=== PATIENT | female | born 1965 | race African-American/Black ===

== ENCOUNTER 2023-10-01 07:32 | Emergency (ER) | payer OTHER ==
[2023-10-01 07:43] VITALS: BP 151/85; PULSE 77; RESP 17; TEMP 97.8; BMI 25.1
[2023-10-01] MEDS ORDERED: PHENAZOPYRIDINE HCL 100 MG TABLET (FP) PO ONE (08:00)
[2023-10-01] MEDS ORDERED: PHENAZOPYRIDINE HCL 100 MG TABLET (FP) ONE (08:06)
[2023-10-01 08:30] LABS: EPI CELLS 5 /uL (0-25.1); HYALINE CASTS 0 /uL (0-3.1); PH,URINE 7.5 (5.0-8.0); URINE APPEARANCE CLEAR; URINE BACTERIA 155 /uL (0-1359); URINE BILIRUBIN NEGATIVE (NEGATIVE); URINE COLOR ORANGE; URINE GLUCOSE (UA) TRACE (NEGATIVE); URINE KETONE TRACE (NEGATIVE); URINE LEUK ESTERASE TRACE (NEGATIVE); URINE NITRITE NEGATIVE (NEGATIVE); URINE PROTEIN 4+ (NEGATIVE); URINE RBC 3010 /uL (0-23.9); URINE UROBILINOGEN 0.2 mg/dL (0.2-1.0); URINE WBC 166 /uL (0-25.8)
[2023-10-01] MEDS ORDERED: SULFAMETHOXAZOLE/TRIMETHOPRIM 800MG/160MG D.S. TABLET PO ONE (09:42)
[2023-10-01] MEDS ORDERED: SULFAMETHOXAZOLE/TRIMETHOPRIM 800MG/160MG D.S. TABLET ONE (09:51)
== END 2023-10-01 10:02 | disposition home or self-care (01) ==
LOC: JER 07:32
DX: R30.0 Dysuria (principal); R10.30 Lower abdominal pain, unspecified; R19.7 Diarrhea, unspecified; N30.01 Acute cystitis with hematuria
CPT/HCPCS: 74176-TC; 81003; 82962; 87086; 99284-25

== ENCOUNTER 2023-10-04 19:02 | Inpatient (IN) | payer OTHER ==
[2023-10-04] MEDS ORDERED: ACETAMINOPHEN 1000 MG/100 ML BAG IVPB ONE (21:18)
[2023-10-04] MEDS ORDERED: ONDANSETRON 4 MG/2 ML VIAL IVPUSH ONE (21:38)
[2023-10-04] MEDS ORDERED: SODIUM CHLORIDE 0.9% 500 ML INFUS.BAG IV ONE (21:38)
[2023-10-04] MEDS ORDERED: ONDANSETRON 4 MG/2 ML VIAL ONE (21:45)
[2023-10-04] MEDS ORDERED: ACETAMINOPHEN INJECTION 100 ML IVPB ONE (21:45)
[2023-10-04 21:47] LABS: BASO % 0.3 % (0-2.0); EOS % 0.3 % (0-4.5); HEMATOCRIT 34.5 % (32.4-45.2); HEMOGLOBIN 11.3 GM/dL (10.7-15.3); LYMPH % 4.9 % (8-40); MCH 24.4 pg (25.7-33.7); MCHC 32.8 g/dl (32.0-36.0); MEAN CELL VOLUME 74.4 fl (80-96); MEAN PLT VOLUME 8.2 fl (7.5-11.1); MONO % 9.3 % (3.8-10.2); NEUT % 85.2 % (42.8-82.8); PLATELET COUNT 304 10^3/uL (134-434); RBC 4.63 M/mm3 (3.60-5.2); RDW 15.1 % (11.6-15.6); WHITE BLOOD COUNT 10.3 K/mm3 (4.0-10.0)
[2023-10-04 21:52] LABS: EPI CELLS 8 /uL (0-25.1); HYALINE CASTS 1 /uL (0-3.1); PH,URINE 5.5 (5.0-8.0); URINE APPEARANCE CLEAR; URINE BACTERIA 323 /uL (0-1359); URINE BILIRUBIN 3+ (NEGATIVE); URINE COLOR DK YELLOW; URINE GLUCOSE (UA) NEGATIVE (NEGATIVE); URINE KETONE 1+ (NEGATIVE); URINE LEUK ESTERASE 2+ (NEGATIVE); URINE NITRITE NEGATIVE (NEGATIVE); URINE PROTEIN 1+ (NEGATIVE); URINE WBC 219 /uL (0-25.8)
[2023-10-04 21:55] LABS: INR 1.95 (0.83-1.09); PROTHROMBIN TIME (PATIENT) 22.5 SEC (9.7-13.0)
[2023-10-04 21:58] LABS: ACTIVATED PTT 33.4 SECONDS (25.2-36.5)
[2023-10-04 22:04] LABS: POTASSIUM 4.6 mmol/L (3.5-5.1)
[2023-10-04 22:06] LABS: ALBUMIN 3.5 g/dl (3.4-5.0)
[2023-10-04 22:07] LABS: BLOOD UREA NITROGEN 13.4 mg/dL (7-18)
[2023-10-04 22:11] LABS: BILIRUBIN,TOTAL 4.2 mg/dL (0.2-1); TOT PROT 7.7 g/dl (6.4-8.2)
[2023-10-04 22:13] LABS: URINE RBC 34.7 /uL (0-23.9)
[2023-10-04] MEDS ORDERED: CEFTRIAXONE 1 GM in DEXTROSE 5%-WATER - 100 ML IVPB ONE (23:54)
[2023-10-05] MEDS ORDERED: CEFTRIAXONE 1 GM/50 ML BAG ONE (00:29)
[2023-10-05] MEDS ORDERED: SODIUM CHLORIDE 0.9% 500 ML INFUS.BAG IV ONE (02:00)
[2023-10-05] MEDS ORDERED: KETOROLAC TROMETHAMINE 15 MG/ML VIAL IVPUSH PRN (04:29)
[2023-10-05] MEDS ORDERED: SODIUM CHLORIDE 1,000 ML IV SCH (04:30)
[2023-10-05] MEDS ORDERED: traMADol HCL 50 MG TABLET PO PRN (04:30)
[2023-10-05] MEDS ORDERED: ONDANSETRON 4 MG/2 ML VIAL IVPUSH PRN (06:54)
[2023-10-05 08:04] LABS: BASO % 0.2 % (0-2.0); EOS % 0.7 % (0-4.5); HEMATOCRIT 32.3 % (32.4-45.2); HEMOGLOBIN 10.6 GM/dL (10.7-15.3); LYMPH % 3.6 % (8-40); MCH 24.4 pg (25.7-33.7); MCHC 32.9 g/dl (32.0-36.0); MEAN CELL VOLUME 74.2 fl (80-96); MEAN PLT VOLUME 8.9 fl (7.5-11.1); MONO % 10.3 % (3.8-10.2); NEUT % 85.2 % (42.8-82.8); PLATELET COUNT 266 10^3/uL (134-434); RBC 4.36 M/mm3 (3.60-5.2); RDW 15.3 % (11.6-15.6); WHITE BLOOD COUNT 10.1 K/mm3 (4.0-10.0)
[2023-10-05 08:06] LABS: INR 2.2 (0.83-1.09); PROTHROMBIN TIME (PATIENT) 25.3 SEC (9.7-13.0)
[2023-10-05 08:42] LABS: POTASSIUM 4.5 mmol/L (3.5-5.1)
[2023-10-05 08:47] LABS: CALCIUM 8.5 mg/dL (8.5-10.1)
[2023-10-05 08:48] LABS: ALBUMIN 3.2 g/dl (3.4-5.0); BLOOD UREA NITROGEN 12.1 mg/dL (7-18)
[2023-10-05 08:53] LABS: BILIRUBIN,TOTAL 5.1 mg/dL (0.2-1); CREATININE 0.8 mg/dL (0.55-1.3); TOT PROT 7.3 g/dl (6.4-8.2)
[2023-10-05] MEDS ORDERED: SODIUM CHLORIDE 1,000 ML IV STA (09:07)
[2023-10-05] MEDS ORDERED: ENOXAPARIN NA (PORCINE) 40 MG/0.4 ML DISP.SYRIN SQ SCH (10:00)
[2023-10-05 11:14] LABS: HIV INTERPRETATION NEGATIVE (NEGATIVE)
[2023-10-05] MEDS ORDERED: PHYTONADIONE 10 MG/1 ML AMP IVPB ONE (12:15)
[2023-10-05 12:19] VITALS: BMI 24.3
[2023-10-05 13:00] LABS: BASO % 0.2 % (0-2.0); EOS % 0.4 % (0-4.5); LYMPH % 7.3 % (8-40); MCH 24.7 pg (25.7-33.7); MCHC 33.4 g/dl (32.0-36.0); MEAN CELL VOLUME 73.9 fl (80-96); MEAN PLT VOLUME 8.7 fl (7.5-11.1); MONO % 10.9 % (3.8-10.2); NEUT % 81.2 % (42.8-82.8); PLATELET COUNT 263 10^3/uL (134-434); RBC 4.06 M/mm3 (3.60-5.2); RDW 15.1 % (11.6-15.6); WHITE BLOOD COUNT 8.8 K/mm3 (4.0-10.0)
[2023-10-05] MEDS ORDERED: ACETYLCYSTEINE IVPB ONE (13:00)
[2023-10-05] MEDS ORDERED: WATER IVPB ONE (13:00)
[2023-10-05] MEDS ORDERED: DEXTROSE 5% IVPB ONE (13:00)
[2023-10-05 13:01] LABS: INR 2.19 (0.83-1.09); PROTHROMBIN TIME (PATIENT) 25.2 SEC (9.7-13.0)
[2023-10-05 13:35] LABS: POTASSIUM 4.4 mmol/L (3.5-5.1)
[2023-10-05 13:40] LABS: ALBUMIN 2.9 g/dl (3.4-5.0); BLOOD UREA NITROGEN 10.2 mg/dL (7-18); CALCIUM 7.8 mg/dL (8.5-10.1)
[2023-10-05 13:43] LABS: CREATININE 0.9 mg/dL (0.55-1.3)
[2023-10-05 13:45] LABS: BILIRUBIN,TOTAL 4.6 mg/dL (0.2-1); TOT PROT 6.7 g/dl (6.4-8.2)
[2023-10-05] MEDS ORDERED: ACETYLCYSTEINE INJECTION 20% 3,800 MG in DEXTROSE 5%-WATER - 500 ML IVPB ONE (14:00)
[2023-10-05] MEDS ORDERED: ACETYLCYSTEINE INJECTION 20% 7,500 MG in DEXTROSE 5%-WATER - 1,000 ML IVPB ONE (18:00)
[2023-10-06 09:35] LABS: PHENCYCLIDINE,URINE NEGATIVE (NEGATIVE)
[2023-10-06 09:36] LABS: METHADONE, UR NEGATIVE (NEGATIVE); OPIATES, URI NEGATIVE (NEGATIVE); URINE BENZODIAZEPINES NEGATIVE (NEGATIVE)
[2023-10-06 09:43] LABS: INR 1.52 (0.83-1.09); PROTHROMBIN TIME (PATIENT) 17.6 SEC (9.7-13.0)
[2023-10-06 09:50] LABS: COCAINE, UR NEGATIVE (NEGATIVE); URINE AMPHETAMINES NEGATIVE (NEGATIVE); URINE BARBITURATES NEGATIVE (NEGATIVE)
[2023-10-06 10:00] LABS: ALBUMIN 2.4 g/dl (3.4-5.0)
[2023-10-06 10:05] LABS: BILIRUBIN,TOTAL 3.8 mg/dL (0.2-1); TOT PROT 6.2 g/dl (6.4-8.2)
[2023-10-06] MEDS: SODIUM CHLORIDE 1,000 ML IV SCH (13:48)
[2023-10-06 15:58] LABS: POTASSIUM 4.2 mmol/L (3.5-5.1)
[2023-10-06 15:59] LABS: CALCIUM 8.6 mg/dL (8.5-10.1)
[2023-10-06 16:00] LABS: BLOOD UREA NITROGEN 7.1 mg/dL (7-18)
[2023-10-06 16:03] LABS: CREATININE 0.8 mg/dL (0.55-1.3)
[2023-10-07 11:08] LABS: BASO % 0.7 % (0-2.0); EOS % 0.9 % (0-4.5); LYMPH % 17.4 % (8-40); MCH 24.3 pg (25.7-33.7); MCHC 33.4 g/dl (32.0-36.0); MEAN CELL VOLUME 72.6 fl (80-96); MEAN PLT VOLUME 9.1 fl (7.5-11.1); MONO % 6.4 % (3.8-10.2); NEUT % 74.6 % (42.8-82.8); PLATELET COUNT 309 10^3/uL (134-434); RBC 4.14 M/mm3 (3.60-5.2); RDW 15.5 % (11.6-15.6); WHITE BLOOD COUNT 7.8 K/mm3 (4.0-10.0)
[2023-10-07 11:10] LABS: INR 1.23 (0.83-1.09); PROTHROMBIN TIME (PATIENT) 14.2 SEC (9.7-13.0)
[2023-10-07 11:18] LABS: POTASSIUM 3.9 mmol/L (3.5-5.1)
[2023-10-07 11:20] LABS: ALBUMIN 2.6 g/dl (3.4-5.0); CALCIUM 8.7 mg/dL (8.5-10.1)
[2023-10-07 11:21] LABS: MAGNESIUM 1.9 mg/dL (1.8-2.4)
[2023-10-07 11:24] LABS: CREATININE 0.7 mg/dL (0.55-1.3)
[2023-10-07 11:25] LABS: BILIRUBIN,TOTAL 3.5 mg/dL (0.2-1); TOT PROT 6.7 g/dl (6.4-8.2)
[2023-10-07 15:10] LABS: IG G QN IMMUNOGLOBULIN 1482 mg/dL (586-1602); IGG SUBCLASS 1 980 mg/dL (248-810); IGG SUBCLASS 2 417 mg/dL (130-555); IGG SUBCLASS 3 122 mg/dL (15-102)
[2023-10-07 20:07] LABS: ATYPICAL pANCA <1:20 titer (Neg:<1:20); C-ANCA <1:20 titer (Neg:<1:20)
[2023-10-08 06:56] VITALS: RESP 20
[2023-10-08 10:26] LABS: INR 1.22 (0.83-1.09); PROTHROMBIN TIME (PATIENT) 14.1 SEC (9.7-13.0)
[2023-10-08 10:43] LABS: POTASSIUM 3.9 mmol/L (3.5-5.1)
[2023-10-08 10:49] LABS: CALCIUM 9.2 mg/dL (8.5-10.1)
[2023-10-08 10:50] LABS: ALBUMIN 2.9 g/dl (3.4-5.0); BASO % 1.1 % (0-2.0); BLOOD UREA NITROGEN 7.9 mg/dL (7-18); EOS % 1.8 % (0-4.5); HEMATOCRIT 30.3 % (32.4-45.2); HEMOGLOBIN 10.1 GM/dL (10.7-15.3); MCHC 33.2 g/dl (32.0-36.0); MEAN CELL VOLUME 72.3 fl (80-96); MONO % 7.5 % (3.8-10.2); NEUT % 65.6 % (42.8-82.8); PLATELET COUNT 333 10^3/uL (134-434); RDW 15.8 % (11.6-15.6); WHITE BLOOD COUNT 6.7 K/mm3 (4.0-10.0)
[2023-10-08 10:53] LABS: CREATININE 0.6 mg/dL (0.55-1.3)
[2023-10-08 10:55] LABS: BILIRUBIN,TOTAL 2.8 mg/dL (0.2-1)
[2023-10-08 11:18] VITALS: BP 132/78; PULSE 76; TEMP 98
[2023-10-08] MEDS: SODIUM CHLORIDE 1,000 ML IV SCH (12:03)
== END 2023-10-08 12:51 | disposition home or self-care (01) | DRG 442 ==
LOC: JER 19:02 → JERBED 10-05 01:37 → OBSVTOIN 10-05 04:12 → J8W 10-05 10:22
PROVIDERS: ADMIT Internal Medicine; ATTEND Nurse Practitioner Acute Care
DX: K71.10 Toxic liver disease with hepatic necrosis, without coma (principal); N39.0 Urinary tract infection, site not specified; E11.9 Type 2 diabetes mellitus without complications; T36.8X5A Adverse effect of other systemic antibiotics, initial encounter; R01.1 Cardiac murmur, unspecified; R79.89 Other specified abnormal findings of blood chemistry; D25.9 Leiomyoma of uterus, unspecified
CPT/HCPCS: 0241U-QW; 36415; 71045-TC-FY; 74181-TC; 76705-TC; 80048; 80053; 80076; 80307; 81003; 82105; 82248; 82784; 82787; 82962; 83036; 83516; 83520; 83605; 83690; 83735; 83883; 84484; 85025; 85610; 85730; 86038; 86256; 86376; 86704; 86708; 86803; 87040; 87086; 87340; 87389; 87517; 93005; 93010; 93306-TC; 99285-25; G0378